=== PATIENT | male | born 1990 | race Caucasian/White ===

== ENCOUNTER 2020-04-29 14:20 | Emergency (ER) | payer MEDICAID, OTHER ==
[~2020-04-29] VITALS: Ht 172.7 cm; Wt 95.0 kg
[~2020-04-29 14:20] MED LIST: ACET-784 PO; HYDR-4455 PO; SIME125C PO
[2020-04-29 15:10] LABS: BASOPHILS % (AUTO) 0.4 % (0.0-2.0); EOSINOPHILS % (AUTO) 1.6 % (1.0-6.0); HEMATOCRIT 40.8 % (41-53); HEMOGLOBIN 14.1 g/dL (13.5-17.5); LYMPHOCYTES # (AUTO) 2.6 K/uL (1.0-4.8); LYMPHOCYTES % (AUTO) 30.7 % (22.0-44.0); MEAN CORPUSCULAR HEMOGLOBIN 31.2 pg (26.0-34.0); MEAN CORPUSCULAR HGB CONC 34.5 G/dL (31.0-37.0); MEAN CORPUSCULAR VOLUME 90 fL (80-100); MONOCYTES # (AUTO) 0.6 K/uL (0.1-1.0); NEUTROPHILS # (AUTO) 5.1 K/uL (1.8-7.7); NEUTROPHILS % (AUTO) 60.3 % (40.0-70.0); PLATELET COUNT (AUTO) 261 K/uL (150-450); RED BLOOD CELL COUNT(AUTO) 4.52 MIL/uL (4.50-5.90)
[2020-04-29 15:24] LABS: ANION GAP 5 mmol/L (8-16); CALCIUM, TOTAL 9.4 mg/dL (8.8-10.5); CARBON DIOXIDE 29 mmol/L (22-29); CHLORIDE 106 mmol/L (98-107); CREATININE 0.77 mg/dL (0.60-1.30); GLOMERULAR FILTR. RATE CALC > 60 mL/min (>60); GLUCOSE,RANDOM 100 mg/dL (70-110); POTASSIUM 4.1 mmol/L (3.5-5.1); SODIUM SERUM 140 mmol/L (136-145); UREA NITROGEN, BLOOD 17 mg/dL (7-18)
[2020-04-29 15:30] LABS: ALANINE AMINOTRANSFERASE 44 U/L (12-78); ALBUMIN 4.1 g/dL (3.4-5.0); ALKALINE PHOSPHATASE 53 U/L (46-116); ASPARTATE AMINOTRANSFERASE 26 U/L (15-37); BILIRUBIN,TOTAL 0.3 mg/dL (0.1-1.0); TOTAL PROTEIN, SERUM 7.6 g/dL (6.4-8.2)
[2020-04-29 16:02] VITALS: BP 96/59
== END 2020-04-29 16:18 | disposition home or self-care (01) ==
LOC: EMS 14:21
DX: R07.89 Other chest pain (principal); F17.210 Nicotine dependence, cigarettes, uncomplicated; F12.90 Cannabis use, unspecified, uncomplicated
CPT/HCPCS: 85379; 36415-L1; 36415-TC; 71046; 71046-TC

== ENCOUNTER 2021-09-14 16:27 | Emergency (ER) | payer OTHER ==
[~2021-09-14] VITALS: Ht 172.7 cm; Wt 92.3 kg
[2021-09-14 16:43] VITALS: BP 111/62
[2021-09-14] MEDS ORDERED: SULF-261 PO (17:41)
== END 2021-09-14 17:54 | disposition home or self-care (01) ==
LOC: EMS 16:46
DX: L03.116 Cellulitis of left lower limb (principal); F17.210 Nicotine dependence, cigarettes, uncomplicated
CPT/HCPCS: 99281; Z7502

== ENCOUNTER 2021-09-16 12:20 | Emergency (ER) | payer OTHER ==
[~2021-09-16] VITALS: Ht 172.7 cm; Wt 92.3 kg
[~2021-09-16 12:20] MED LIST changes: -ACET-784 PO; -HYDR-4455 PO; -SIME125C PO; +SULF-261 PO
[2021-09-16 12:37] VITALS: BP 108/63
[2021-09-16] MEDS ORDERED: CEPH500B PO (13:04)
== END 2021-09-16 13:42 | disposition home or self-care (01) ==
LOC: EMS 12:23
DX: L03.116 Cellulitis of left lower limb (principal); F17.210 Nicotine dependence, cigarettes, uncomplicated; Z79.899 Other long term (current) drug therapy
CPT/HCPCS: 96372; 99283; J0690